=== PATIENT | female | born 1985 | race Caucasian/White ===

== ENCOUNTER 2021-04-18 19:20 | Outpatient (REF) | payer MEDICAID, SELFPAY ==
[2021-04-18 19:55] LABS: Ferritin 62 ng/mL (8-252); TSH (W/Ref FT4) 1.37 uIU/mL (0.36-3.74)
[2021-04-18 20:07] LABS: Vitamin D 25 Total < 5 ng/mL (30-100)
== END 2021-04-18 19:21 | disposition home or self-care (01) ==
LOC: NCHCN 19:20
PROVIDERS: PCP Nurse Practitioner Family; Visit Provider Nurse Practitioner Family
DX: Z00.00 Encounter for general adult medical examination without abnormal findings (principal)
CPT/HCPCS: 82306; 82728; 84443

== ENCOUNTER 2021-05-12 16:50 | Outpatient (REF) | payer MEDICAID, SELFPAY ==
[2021-05-12 19:20] LABS: Abs Immature Grans 0.13 10^3/uL (0.0-0.06); Absolute Eosinophil Count 0.42 10^3/uL (0.0-0.7); Absolute Lymphocyte Count 2.69 10^3/uL (1.2-3.4); Absolute Monocyte Count 1.05 10^3/uL (0.1-0.8); Absolute Neutrophil Count 8.61 10^3/uL (1.2-6.7); Basophils % 0.8; Eosinophils % 3.2; HCT 43.5 % (36.0-46.0); HGB 14.2 g/dL (11.2-15.7); Lymphocytes % 20.7; MCH 29.6 pg (27.0-33.0); MCHC 32.6 % (32.0-36.0); MCV 90.8 fL (80-95); MPV 10.5 fL (8.0-11.0); Monocytes % 8.1; Neutrophils % 66.2; Nucleated RBC 0 %; Platelet Count 306 10^3/uL (130-400); RBC 4.79 10^6/uL (3.93-5.22); RDW 11.8 % (11.7-14.6); RDW-SD 39.7 fL; WBC 13.01 10^3/uL (4.4-10.8)
[2021-05-12 19:31] LABS: Bilirubin Negative (Negative); Blood Moderate (Negative); Clarity Clear (Clear); Glucose Negative (Negative); Ketones Negative (Negative); Leukocyte Esterase Negative (Negative); Nitrite Negative (Negative); Urobilinogen 0.2 EU/dL (Up TO 0.2)
[2021-05-12 19:39] LABS: Bacteria Negative HPF (Negative); C & S Indicated? No; Crystals Negative HPF (Negative); Epithelial Cells Few HPF (Negative); Mucus Trace (Negative); WBC Negative HPF (0-5)
[2021-05-12 19:54] LABS: ALT 22 U/L (14-59); AST 10 U/L (15-37); Albumin 3.8 g/dL (3.4-5.0); Alkaline Phosphatase 62 U/L (46-116); Anion Gap 8.9 mmol/L (3-11); BUN 11 mg/dL (7-18); Bilirubin, Total 0.3 mg/dL (0.2-1.0); CO2 27.1 mmol/L (21.0-32.0); CREATININE 0.7 mg/dL (0.55-1.02); Calcium 8.6 mg/dL (8.5-10.1); Chloride 104 mmol/L (98-107); Glucose 83 mg/dL (74-106); Potassium 3.9 mmol/L (3.5-5.1); Sodium 140 mmol/L (136-145); Total Protein 7.5 g/dL (6.4-8.2)
== END 2021-05-12 16:51 | disposition home or self-care (01) ==
LOC: NCHCN 16:50
PROVIDERS: PCP Nurse Practitioner Family; Visit Provider Nurse Practitioner Family
DX: R10.9 Unspecified abdominal pain (principal)
CPT/HCPCS: 80053; 81003; 81015; 85025

== ENCOUNTER 2022-06-15 13:01 | Outpatient (REF) | payer MEDICAID, SELFPAY ==
[2022-06-15 15:44] LABS: Hemoglobin A1C 5.3 % (<5.7)
[2022-06-15 16:06] LABS: BUN 13 mg/dL (7-18); CREATININE 0.7 mg/dL (0.55-1.02); Calcium 9.1 mg/dL (8.5-10.1); Calculated LDL 123 mg/dL (<100); Chloride 104 mmol/L (98-107); Cholesterol 209 mg/dL (<200); Estimated GFR 116.31 (mL/min/1.73m2); Glucose 101 mg/dL (74-106); HDL Cholesterol 53 mg/dL (40-60); Sodium 141 mmol/L (136-145); Triglyceride 165 mg/dL (<150)
[2022-06-15 16:34] LABS: Vitamin D 25 Total 8.8 ng/mL (30-100)
== END 2022-06-15 13:02 | disposition home or self-care (01) ==
LOC: NCHCN 13:01
PROVIDERS: PCP Nurse Practitioner Family; Visit Provider Nurse Practitioner Family
DX: E55.9 Vitamin D deficiency, unspecified (principal); R53.83 Other fatigue; Z13.1 Encounter for screening for diabetes mellitus; Z83.3 Family history of diabetes mellitus; R79.89 Other specified abnormal findings of blood chemistry
CPT/HCPCS: 80048; 80061; 82306; 83036

== ENCOUNTER 2023-01-08 16:01 | Outpatient (REF) | payer MEDICAID, SELFPAY ==
[2023-01-08 20:52] LABS: Source Nasal/Nares
[2023-01-08 21:45] LABS: COVID-19 PCR POSITIVE (Negative)
== END 2023-01-08 16:02 | disposition home or self-care (01) ==
LOC: LBN 16:01
PROVIDERS: PCP Nurse Practitioner Family; Visit Provider Nurse Practitioner Family
DX: Z11.52 Encounter for screening for COVID-19 (principal)
CPT/HCPCS: 87635

== ENCOUNTER 2023-04-12 12:41 | Outpatient (REF) | payer BC, SELFPAY ==
[2023-04-12 16:08] LABS: HCT 42.6 % (36.0-46.0); HGB 14.7 g/dL (11.2-15.7); MCH 29.8 pg (27.0-33.0); MCHC 34.5 % (32.0-36.0); MCV 86 fL (80-95); MPV 10.9 fL (8.0-11.0); Platelet Count 303 10^3/uL (130-400); RBC 4.93 10^6/uL (3.93-5.22); RDW-SD 38.3 fL; WBC 10.54 10^3/uL (4.4-10.8)
[2023-04-12 16:28] LABS: Hemoglobin A1C 5.2 % (<5.7)
[2023-04-12 16:58] LABS: Ferritin 78 ng/mL (8-252)
[2023-04-13 09:40] LABS: HIV-1/2 Ag & Ab Screen Negative (Negative)
[2023-04-13 09:48] LABS: Hepatitis C Ab w Rflx HCV PCR Negative (Negative)
== END 2023-04-12 12:42 | disposition home or self-care (01) ==
LOC: NCHCN 12:41
PROVIDERS: PCP Nurse Practitioner Family; Visit Provider Nurse Practitioner Family
DX: E55.9 Vitamin D deficiency, unspecified (principal); Z00.00 Encounter for general adult medical examination without abnormal findings; Z13.1 Encounter for screening for diabetes mellitus
CPT/HCPCS: 82306; 85027; 86803; 87389; 82728; 83036